=== PATIENT | female | born 1950 | race Two or more races ===

== ENCOUNTER → 2017-04-01 | Outpatient (CLI) | payer OTHER ==
--- NOTE | 2017-04-01 12:37 | RAD ---
Indication: Fall and difficulty walking. Time of exam 12:23 PM 3 views of the right knee demonstrate tricompartmental degenerative change with joint space narrowing and marginal spurring. No fracture, dislocation or effusion is detected. Impression: Degenerative changes. No acute bony abnormality is detected.
== END | disposition home or self-care (01) ==
LOC: DXRAD 12:09
PROVIDERS: ATTEND Family Medicine
DX: M17.11 Unilateral primary osteoarthritis, right knee (principal); M25.861 Other specified joint disorders, right knee
CPT/HCPCS: 73562

== ENCOUNTER → 2018-01-07 | Outpatient (CLI) | payer MEDICARE ==
[~2018-01-07] MED LIST: BUPIVACAINE MPF 0.25% 10 ML VIAL. ONE; BUPIVACAINE MPF 0.25% 30 ML VIAL. ONE
== END | disposition home or self-care (01) ==
LOC: SURG 10:09
PROVIDERS: ATTEND Anesthesiology
DX: M79.1 Myalgia (principal); G47.33 Obstructive sleep apnea (adult) (pediatric); I10 Essential (primary) hypertension; J96.11 Chronic respiratory failure with hypoxia; G89.29 Other chronic pain; Z98.890 Other specified postprocedural states; E66.01 Morbid (severe) obesity due to excess calories; Z79.899 Other long term (current) drug therapy; Z72.89 Other problems related to lifestyle; M47.26 Other spondylosis with radiculopathy, lumbar region
CPT/HCPCS: 20552; J3490; 20553